=== PATIENT | male | born 1975 | race Caucasian/White ===

== ENCOUNTER 2019-01-24 05:57 | Observation (INO) ==
[2019-01-24] MEDS ORDERED: Ketorolac 15 MG/ML VIAL IVP ONE (06:25)
[2019-01-24] MEDS ORDERED: Tdap (Boostrix) Vaccine 0.5 ML SYRINGE IM ONE (06:25)
[2019-01-24] MEDS ORDERED: Piperacillin/Tazobactam 3.375 GM in Water for inj. (sterile) 20 ML IVP ONE (06:25)
--- NOTE | 2019-01-24 06:34 | Emergency Department Note ---
Disposition Clinical Impression: Fish bite wound Qualifiers: Encounter type: initial encounter Qualified Code(s): W56.51XA - Bitten by other fish, initial encounter Infected puncture wound of finger Qualifiers: Encounter type: initial encounter Qualified Code(s): S61.239A - Puncture wound without foreign body of unspecified finger without damage to nail, initial encounter Disposition: Admitted As Inpatient Condition: Fair Time of Disposition: 08:15 Extremity Problem HPI - General Chief complaint: ED Extremity Problem,Nontraumatic Stated complaint: R Thumb Infected Time Seen by Provider: 01/24/19 06:11 Source: patient, family Mode of arrival: private vehicle Limitations: no limitations Nursing Notes Reviewed: Yes Vital Signs Reviewed: Yes - History of Present Illness HPI Narrative: Patient to ED with for eval of right thumb infection. He reports being "stung" by a catfish while fishing last week. He was seen at [facility] after the tip of the thumb turned red. They gave him Keflex. He returned to [facility] a few days later with an abscess and increased redness/swelling. They then gave him Levaquin and Clindamycin. He stabbed the abscess with a needle and "a lot of pus" drained. Pain, swelling and redness have continued to worsen despite the abx and self I&D. He denies fever, chills, nausea, vomiting, paraesthesias, weakness or decreased ROM. He states that he was not given a Tdap booster during either of his prior ED visits. Pt Subjective Complaint: extremity pain Onset (ago): day(s) Consistency: constant, Worsening Injury Location: right Pain Scale: 8 Quality: stabbing, aching Radiation: proximal Improves with: nothing Worsens with: palpation, use Associated symptoms: Reports: change in appearance, swelling, redness, other (new redness since yesterday). Denies: chest pain, shortness of breath, abdominal pain, back pain, fever Context: trauma ("Stung by catfish in tip of thumb last week") - Related Data Home Medications Medication Instructions Recorded Confirmed Buprenorphine HCl/Naloxone HCl 1 each SL BID 01/24/19 01/24/19 [Suboxone 8 mg-2 mg Sl Film] Allergies Allergy/AdvReac Type Severity Reaction Status Date / Time No Known Allergies Allergy Verified 09/01/16 07:59 All systems ED: reviewed and negative except as stated. Review of Systems: As Per HPI Constitutional: Denies: fever, chills, weakness Cardiovascular: Denies: chest pain, palpitations, syncope Respiratory: Denies: cough, dyspnea Gastrointestinal: Denies: abdominal pain, nausea, vomiting Musculoskeletal: Denies: neck pain, joint swelling, arthralgia Neurological: Denies: weakness, numbness, paresthesias Hematological/Lymphatic: Denies: easy bleeding, easy bruising, lymphadenopathy Past Medical History - Past Medical History Attestation: Yes The following information was validated with the patient. Source: patient Medical history: Reports: no medical history Surgical history: Reports: non-contributory Psychiatric history: Reports: no psych history - Social History Smoking Status: Current every day smoker Smokeless Tobacco Status: No Alcohol use: Reports: none Drug use: Reports: none, other (On Suboxone) Physical Exam - General Limitations: no limitations General appearance: alert, in no apparent distress - Head Head exam: atraumatic, normocephalic, normal inspection - Eye Eye exam: Present: normal appearance. Absent: scleral icterus, conjunctival injection, periorbital swelling - ENT ENT exam: mucous membranes moist - Neck Neck exam: Present: normal inspection, trachea midline. Absent: meningismus - Chest Chest inspection: Present: normal inspection - Respiratory Respiratory exam: Absent: respiratory distress - Cardiovascular Cardiovascular exam: Present: regular rate - Extremities Exam Extremities exam: Present: full ROM, tenderness, normal capillary refill - Expanded Upper Extremity Exam Shoulder exam: Present: normal inspection, full ROM. Absent: tenderness Arm exam: Present: normal inspection. Absent: tenderness Elbow exam: Present: normal inspection, full ROM. Absent: tenderness, swelling Forearm/Wrist exam: Present: normal inspection, full ROM. Absent: tenderness, swelling Hand exam: Present: full ROM, tenderness, swelling, erythema, other (Right thumb distal phalanx is circumferentially edematous, erythematous, tender, and has an abscess on the lateral aspect.) Hand L/R front image: 1 - other (red, warm, swollen, tender) 2 - other (abscess) Neuromotor exam: Normal: wrist extension, thumb opposition, thumb IP flexion, thumb adduction, fingers 2-5 abduction Neurosensory exam: Normal: radial nerve, ulnar nerve, median nerve Hand tendon exam: Normal: flexor digitorum profundus (location), flexor digitorum superficialis (location), extensor tendon (location) Vascular exam: Normal: capillary refill, radial pulse, ulnar pulse - Neurological Exam Neurological exam: Present: alert, oriented X3, CN II-XII intact - Psychiatric Psychiatric exam: Present: normal affect, normal mood - Skin Skin exam: Present: warm, dry, intact Course Course Narrative: Patient was impaled by a catfish spine last week and now has an infection in the right thumb distal phalanx. He describes having an abscess which he drained. He was seen at [facility] twice and was given Kelfex, then Levaquin and clindamycin. He now has another abscess and increasing cellulitis. No fever, hypotension or tachypnea. No subjective fever/chills or malaise. No lymphangitis. Labs, meds, tdap and xray ordered. Will I&D and consult with Ortho. Labs good. Xray does not show osteo or FB. Wound culture added. I&D completed. Patient tolerated this well. Cased discussed with Dr. Haro. He has had face to face time with the patient and agrees with the assessment and plan. Hospitalist tanya. Patient accepted for admisison. - Consultations Consultation #1: Case discussed with Dr. Yin. He agrees with plan to I&D and ryne's packing and wound and having patient do tid hibiclense + water soaks. Time: 08:33 Vital Signs Temperature 98.6 F 01/24/19 06:08 Pulse Rate 68 01/24/19 06:08 Respiratory Rate 18 01/24/19 06:08 Blood Pressure 142/91 01/24/19 06:08 O2 Sat by Pulse Oximetry 98 01/24/19 06:08 Temperature 98.6 F 01/24/19 06:08 Pulse Rate 60 01/24/19 07:06 Respiratory Rate 16 01/24/19 07:06 Blood Pressure 130/76 01/24/19 07:06 O2 Sat by Pulse Oximetry 99 01/24/19 07:06 Oxygen Delivery Oxygen Delivery Room Air Procedures - Abscess I/D Consent obtained: verbal consent Site: hand (thumb) Side (if applicable): right Local Anesthetic: bupivacaine 0.5% Amount of Anesthesia Used (mL): 2 Technique: incised with #11 blade Amount of fluid: 1 Irrigation: Yes Packing used?: iodoform Complications: other (none) Extremity Problem, Nontraumati - Medical Records Medical records reviewed: Yes I reviewed the patient's medical records. - Lab Data Lab results reviewed: Yes I reviewed the patient's lab results. Result diagrams: 01/24/19 06:51 01/24/19 06:51 Lab Results 01/24/19 01/24/19 Range/Units 06:51 06:51 WBC 7.3 (4.3-11.1) K/mcL RBC 4.54 (4.19-5.50) M/mcL Hgb 14.8 (12.9-16.9) g/dL Hct 43.7 (37.5-50.1) % MCV 96.3 (83.0-100.0) fL MCH 32.6 (28.0-33.3) pg MCHC 33.9 (31.6-35.5) g/dL RDW 12.2 (11.5-14.5) % Plt Count 197 (140-400) K/mcL MPV 10.6 (9.4-12.4) fL Immature Gran % 0.3 (0-4) % Seg Neutrophils % 69.0 % Lymphocytes % 19.8 % Monocytes % 8.1 % Eosinophils % 2.5 % Basophils % 0.3 % Neutrophils # 5.0 (1.6-8.9) K/mcL Lymphocytes # 1.4 (0.6-4.6) K/mcL Monocytes # 0.6 (0.0-1.3) K/mcL Eosinophils # 0.2 (0.0-0.6) K/mcL Basophils # 0.0 (0.0-0.2) K/mcL Sodium 140 (136-145) mEq/L Potassium 4.1 (3.5-5.1) mEq/L Chloride 104 (98-107) mEq/L Carbon Dioxide 29 (23-29) mEq/L BUN 17 (6-20) mg/dL Creatinine 1.04 (0.70-1.30) mg/dL Est GFR ( Amer) > 60 (> 60) Est GFR (Non-Af Amer) > 60 (> 60) BUN/Creatinine Ratio 16 (6-26) Glucose 108 H (70-105) mg/dL Calculated Osmolality 292 (280-300) Calcium 9.2 (8.6-10.3) mg/dL - Radiology Data Radiology results reviewed: Yes I reviewed the patient's radiology results. Finger X-Ray 01/24/19 06:25 IMPRESSION: Focal soft tissue swelling of 1st digit without acute osseous abnormality. D/ / Marge Ray MD / Marge Ray MD Interpreting Provider: Marge Ray MD Attestation Statement - Attestation Attestation: Patient was seen in cooperation with physician construction administrative assistant. I reviewed the history, physical, assessment, and plan, and I agree with the findings. I also had personal yaee-ce-plor time with an evaluated this patient. 43-year-old male presents emergency Department with infected right thumb. Patient is right-hand dominant. He says he got a spine from a catfish stuck in there week or so ago. He tried multiple antibiotic therapies but it progressively is getting worse. Ultimately prompting his visit to the ER today. There is some pain there but otherwise patient denies other complaints. Review of systems as above remainder negative. Physical exam vital signs are stable. ENT is unremarkable. Heart rhythm and rate lungs clear. Abdomen soft nontender. Extremities patient has a significant infection to the right thumb. It is fluctuant and turning purple. Neurologically patient's intact. Skin no rashes. Psych normal. ED course. The area was incised and drained by the physician construction administrative assistant. He said that of purulent exudate was extracted. Patient was also started on IV antibiotics. This point patient's clearly failed outpatient management. We will do obvious of the abscess drainage but we will also do IV antibiotics and admit the patient. Hospitalist service was notified at to the need for admission. They agreed to accept patient. I agree with the physician construction administrative assistant assessment and plan.
[2019-01-24 07:15] LABS: Basophils % 0.3 %; Eosinophils # 0.2 K/mcL (0.0-0.6); Eosinophils % 2.5 %; Hematocrit 43.7 % (37.5-50.1); Hemoglobin 14.8 g/dL (12.9-16.9); Immature Granulocytes % 0.3 % (0-4); Lymphocytes # 1.4 K/mcL (0.6-4.6); Lymphocytes % 19.8 %; Mean Corpuscular HGB Conc 33.9 g/dL (31.6-35.5); Mean Corpuscular Hemoglobin 32.6 pg (28.0-33.3); Mean Corpuscular Volume 96.3 fL (83.0-100.0); Mean Platelet Volume 10.6 fL (9.4-12.4); Monocytes # 0.6 K/mcL (0.0-1.3); Monocytes % 8.1 %; Platelet Count 197 K/mcL (140-400); Red Blood Count 4.54 M/mcL (4.19-5.50); Red Cell Distribution Width 12.2 % (11.5-14.5); White Blood Count 7.3 K/mcL (4.3-11.1)
[2019-01-24 07:24] LABS: BUN/Creatinine Ratio 16 (6-26); Blood Urea Nitrogen 17 mg/dL (6-20); Calcium 9.2 mg/dL (8.6-10.3); Carbon Dioxide 29 mEq/L (23-29); Chloride 104 mEq/L (98-107); Glucose 108 mg/dL (70-105); Osmolality,Calculated 292 (280-300); Potassium 4.1 mEq/L (3.5-5.1); Sodium 140 mEq/L (136-145); eGFR For African Americans > 60 (> 60); eGFR For Non-African Americans > 60 (> 60)
--- NOTE | 2019-01-24 09:41 | Internal Med History&Physical ---
Date of Encounter: 01/24/19 Time of Encounter: 09:39 Internal Medicine - H&P: HPI Chief complaint: worsening hand wound. Admitted From: Home Plans for Post Hospital Care: Home History of present illness: Mr. 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 He reported being stuck by catfish spine. Patient had mild inflammation and when to ER at [facility]. He was given Keflex. He took it for 2 days however the wound got worse and associated with pain and redness. The antibiotics were changed again at [facility] to Levaquin and clindamycin which she took for about 4-5 days. His wound continued to worsen over the course on antibiotic. yesterday he lanced it with a needle after burning it in order to drain. Watery and pus material came out according to him. This morning when he woke up he noticed significantly increased swelling and redness associated with tenderness. He decided to come to ER. He was given TD Booster. Lab data was unremarkable. He was started on empiric vancomycin and Zosyn. X-ray did not show any bony abnormality. Patient did not have any signs concerning of deep space infection. Patient had I&D done in the ER cultures were stent. Orthopedics was consulted who recommended packing and Hibiclense 3 times a day. Admission was requested for further management. Past Med Surg Social Fam HX - Past Medical History Medical history: no medical history Additional medical history: On suboxone for opiate dependence. h/o DVT on Lt le g. Psychiatric history: no psych history - Past Surgical History Surgical History: non-contributory - Social History Smoking Status: Current every day smoker Smokeless Tobacco Status: No Alcohol use: none Drug use: none, other (On Suboxone) Internal Medicine - H&P: Meds Buprenorphine HCl/Naloxone HCl [Suboxone 8 mg-2 mg Sl Film] 1 each SL BID 01/24/19 [History] Allergy/AdvReac Type Severity Reaction Status Date / Time No Known Allergies Allergy Verified 09/01/16 07:59 All Systems PM: A 10-system review of systems was performed and is negative for pertinent findings except as documented above in the HPI. - Constitutional Vitals: Temp Pulse Resp BP Pulse Ox 98.6 F 59 18 125/83 98 01/24/19 06:08 01/24/19 08:38 01/24/19 08:38 01/24/19 08:38 01/24/19 08:38 Exam: Constitutional: Vitals as noted. Conversant. No Apparent Distress. Well groomed. No obvious deformities. Eyes : Sclera white, conjunctiva clear, no lid lag, PEARLA. ENT : Grossly normal hearing. Oropharyngeal exam unremarkable. Moist mucus membranes. No JVD, no cervical lymphadenopathy. no thyromegaly or mass. Respiratory : Clear to auscultation bilaterally. No accessory muscle use, rales, rhonchi or wheezes Cardiovascular : RRR, +S1, +S2. no murmur, gallop, rubs. No chest wall tenderness GI/Abdominal : Soft, Non-tender, Non-distended, normal bowel sounds, no peritoneal signs. no orgenomegaly or mass appreciated. no hernia. Musculoskeletal: pulses palpable and symmetrical in UE/LE. no calf tenderness. Rt thumb with bandage. no limitation of flexion and extension. sensation intact. Tenderness limited to thumb. Neurological: AO X3, CN II-XII grossly intact, grossly normal motor and sensory exam. Skin: as above Pych: Good insight and judgement. Intact memory. AOx3. Internal Med - H&P Results - Labs CBC & Chem 7: 01/24/19 06:51 01/24/19 06:51 Labs: Short CBC 01/24/19 Range/Units 06:51 WBC 7.3 (4.3-11.1) K/mcL Hgb 14.8 (12.9-16.9) g/dL Hct 43.7 (37.5-50.1) % Plt Count 197 (140-400) K/mcL Neutrophils # 5.0 (1.6-8.9) K/mcL BMP 01/24/19 06:51 Sodium 140 Potassium 4.1 Chloride 104 Carbon Dioxide 29 BUN 17 Creatinine 1.04 Glucose 108 H Calcium 9.2 - Impressions ITS Impressions Finger X-Ray 01/24/19 06:25 IMPRESSION: Focal soft tissue swelling of 1st digit without acute osseous abnormality. D/ / Marge Ray MD / Marge Ray MD Interpreting Provider: Marge Ray MD - Assessment and Plan (1) Infected puncture wound of finger Current Visit: Yes Status: Acute Assessment and plan: Patient failed outpatient Keflex, Levaquin and clindamycin treatment. We will admit for IV antibiotics. We will continue patient on empiric vancomycin and Zosyn for now. Follow up blood and wound cultures. We will defer any further imaging to orthopedist who has been consulted. Qualifiers: Encounter type: subsequent encounter Qualified Code(s): S61.239D - Puncture wound without foreign body of unspecified finger without damage to nail, subsequent encounter; L08.9 - Local infection of the skin and subcutaneous tissue, unspecified (2) H/O deep venous thrombosis Current Visit: Yes Status: Acute Assessment and plan: Had an unprovoked left leg DVT was treated with 8 months of xarelto. Now off it since 3-4 years. Was stopped by PCP. Is followed by PCP (3) Nicotine dependence with current use Current Visit: Yes Status: Acute Assessment and plan: We will keep patient on 40 mg a could not patch (4) DVT prophylaxis Current Visit: Yes Status: Acute Assessment and plan: Heparin subcutaneous - Time Spent With Patient Total time spent is greater than 50% in coordination of care (as documented) at patient's floor/unit and/or counseling patient:
[2019-01-24] MEDS: Nicotine 14 MG PATCH.TD24 TD SCH (12:39)
[2019-01-24] MEDS: *HR* Heparin 5,000 UNIT/ML VIAL SQ SCH ×2 (15:55→23:50)
[2019-01-24] MEDS: Ketorolac 15 MG/ML VIAL IM PRN ×2 (16:02→23:49)
[2019-01-24] MEDS: Piperacillin/Tazobactam 3.375 GM in 0.9 % Sodium Chloride Mini Bag 100 ML IVPB SCH ×2 (16:03→23:50)
[2019-01-24] MEDS ORDERED: Naloxone 0.4 MG/ML INJ IVP PRN (19:03)
[2019-01-24] MEDS: (Buprenorphine Hcl/Naloxone Hcl [Suboxone 8 Mg-2 Mg SL) SL SCH (22:14)
[2019-01-25] MEDS: *HR* Heparin 5,000 UNIT/ML VIAL SQ SCH ×3 (05:54→20:55)
--- NOTE | 2019-01-25 08:09 | Internal Med Progress Note ---
Hospitalist Progress Note - Encounter Date of Encounter: 01/25/19 Time of Encounter: 09:10 - Subjective Interval History: awake, family at bedside. no fevers or chills, pain controlled. no n/v. Ortho to bedside - Exam Vitals: Temp Pulse Resp BP Pulse Ox 98.1 F 59 13 126/64 97 01/25/19 07:09 01/25/19 07:09 01/25/19 07:09 01/25/19 07:09 01/25/19 07:09 Exam: gen- alert, awake,appears stated age eyes- pupils equal round cv- reg rate and rhythm, normal s1,s2, no murmurs appreciated, warm right hand lungs- ctabl, no wheezing, rhonchi or crackles, norm resp effort on room air skin- right hand dressing in place, clean, dry, intact, wound packed msk- right hand fingers rom intact neuro- AAOx3, finger sensation intact to light touch - Assessment and Plan (1) Infected puncture wound of finger Current Visit: Yes Status: Acute (2) H/O deep venous thrombosis Current Visit: Yes Status: Chronic (3) Nicotine dependence with current use Current Visit: Yes Status: Chronic (4) At risk for abuse of opiates Current Visit: Yes Status: Chronic - Summary of Assessment and Plan Summary of Assessment and Plan: Mr Harp is admitted for infected hand wound refractory to outpt abx treatment Infected Right Hand Thumb s/p I&D in ED and packing Refractory to outpt levaquin and clinda -ortho following, cont TID Hibiclens soaks, packing removed today, fu with hand surg one week from dc -cont IV abx Vanc + Zosyn while awaiting cx results Hx Opiate dependence, now on suboxone- avoid opaites this admit Hx DVT not on AC any longer Gerd- PPI vte ppx [facility] Internal Medicine: Result - Labs CBC & Chem 7: 01/24/19 06:51 01/24/19 06:51 Consult Discharge Plan - Plan Referrals: NONE,PCP [Primary Care Provider] - (1) Infected puncture wound of finger Qualifiers: Encounter type: subsequent encounter Qualified Code(s): S61.239D - Puncture wound without foreign body of unspecified finger without damage to nail, subsequent encounter; L08.9 - Local infection of the skin and subcutaneous tissue, unspecified
[2019-01-25] MEDS: Piperacillin/Tazobactam 3.375 GM in 0.9 % Sodium Chloride Mini Bag 100 ML IVPB SCH ×2 (09:45→16:42)
[2019-01-25] MEDS: Nicotine 14 MG PATCH.TD24 TD SCH (09:46)
[2019-01-25] MEDS: Ketorolac 15 MG/ML VIAL IM PRN ×2 (09:47→19:24)
[2019-01-25] MEDS: (Buprenorphine Hcl/Naloxone Hcl [Suboxone 8 Mg-2 Mg SL) SL SCH ×2 (09:47→20:55)
--- NOTE | 2019-01-25 10:19 | Orthopedic Consult Note ---
Date of Encounter: 01/25/19 Time of Encounter: 10:16 Assessment and Plan (1) Infected puncture wound of finger Current Visit: Yes Status: Acute The diagnosis and treatment recommendations were discussed with the patient. Packing was removed today. He will start with 3 times a day Hibiclens soaks for the thumb. Continue IV antibiotics per the hospitalist. When cultures are finalized he may be discharged per the hospitalist recommendations for anti biotics. Recommend soaks at home with dressing changes in-between. He can then follow up with hand surgery in 1 week. Qualifiers: Encounter type: subsequent encounter Qualified Code(s): S61.239D - Puncture wound without foreign body of unspecified finger without damage to nail, subsequent encounter; L08.9 - Local infection of the skin and subcutaneous tissue, unspecified History of Present Illness HPI: Mr. Harp is a 43 year old male past medical history of DVT, on Suboxone admitted with right thumb infection after being stuck by [employer] spine over a week ago. Was seen at an outside hospital and has been on 2 oral antibiotics without improvement. He lanced the thumb himself 2 days ago and drained purulent material per the patient. He had continued pain and swelling was so seen in the emergency department and had a bedside I&D with drainage of significant material. He was then admitted for IV antibiotics. Past Med Surg Social Fam HX - Past Medical History Medical history: no medical history Additional medical history: On suboxone for opiate dependence. h/o DVT on Lt leg. no medication Psychiatric history: no psych history - Past Surgical History Surgical History: non-contributory - Social History Smoking Status: Current every day smoker Packs per day: 2 Smokeless Tobacco Status: No Alcohol use: none Drug use: none, other Medications and Allergies Acetaminophen [Tylenol] 650 mg PO DAILY PRN 01/24/19 [History] Albuterol Sulfate [Proair Hfa] 2 puff IH Q4H PRN 01/24/19 [History] Buprenorphine HCl/Naloxone HCl [Suboxone 8 mg-2 mg Sl Film] 1 tab SL BID 01/24/19 [History] Clindamycin HCl 300 mg PO QID 01/24/19 [History] Ketorolac [Toradol] 10 mg PO DAILY PRN 01/24/19 [History] Omeprazole [PriLOSEC] 40 mg PO DAILY 01/24/19 [History] levoFLOXacin [Levofloxacin] 750 mg PO DAILY 01/24/19 [History] Allergy/AdvReac Type Severity Reaction Status Date / Time No Known Allergies Allergy Verified 01/24/19 18:01 All Systems Reviewed: The remainder of the systems were reviewed and are negative except as noted in the history of present illness Physical Exam - Constitutional Vitals: Temp Pulse Resp BP Pulse Ox 98.1 F 59 13 126/64 97 01/25/19 07:09 01/25/19 07:09 01/25/19 07:09 01/25/19 07:09 01/25/19 07:09 Exam: Consult Exam: Constitutional -Vitals reviewed -The patient is well developed and well nourished. -Mood is pleasant. -The patient is well groomed. Psychiatric -The patient is fully alert and oriented x 3. Respiratory: -Respiratory effort normal Abdomen: -Soft abdomen -Non tender -Non distended: Left upper extremity: -No deformities. The overlying skin is intact. No obvious signs of acute trauma. -No tenderness to palpation throughout. -No significant pain with passive motion of the shoulder, elbow, wrist, and fingers within the limits of the bed. -Able to make an "OK" sign, cross the index and long fingers, and extend the thumb. -Sensation grossly intact to light touch throughout the median, radial, and ulnar distributions. -Radial pulse is present; Fingers have good capillary refill. Right upper extremity: -Area of previous infection on the radial aspect of the right thumb is been decompressed. There is no proximal extension of the infection. He is able to flex and extend the thumb. No purulent drainage noted from wounds. -Able to make an "OK" sign, cross the index and long fingers, and extend the thumb. -Sensation grossly intact to light touch throughout the median, radial, and ul meena distributions. -Radial pulse is present; Fingers have good capillary refill. Left lower extremity: -No deformities. The overlying skin is intact. No obvious signs of acute trauma. -No tenderness to palpation throughout. -No pain with passive motion of the hip, knee, ankle, and toes within the limits of the bed. -No pain with axial loading of the thigh. -Able to dorsiflex and plantarflex the ankle and toes. -Sensation is grossly intact to light touch throughout the sural, saphenous, superficial peroneal, and deep peroneal distributions. -Toes have good capillary refill. Right lower extremity: -No deformities. The overlying skin is intact. No obvious signs of acute trauma. -No tenderness to palpation throughout. -No pain with passive motion of the hip, knee, ankle, and toes within the limits of the bed. -No pain with axial loading of the thigh. -Able to dorsiflex and plantarflex the ankle and toes. -Sensation is grossly intact to light touch throughout the sural, saphenous, paula perficial peroneal, and deep peroneal distributions. -Toes have good capillary refill. Results - Labs Result Diagrams: 01/24/19 06:51 01/24/19 06:51 Labs: Abnormal lab results Glucose 108 mg/dL (70-105) H 01/24/19 06:51 All other labs normal. - Diagnostic results Wrist/Hand x-ray: report reviewed, image reviewed (No obvious signs of ost eomyelitis of the right thumb.) Consult Discharge Plan - Plan Referrals: NONE,PCP [Primary Care Provider] -
[2019-01-26] MEDS: Piperacillin/Tazobactam 3.375 GM in 0.9 % Sodium Chloride Mini Bag 100 ML IVPB SCH ×3 (00:07→15:02)
[2019-01-26] MEDS: *HR* Heparin 5,000 UNIT/ML VIAL SQ SCH ×2 (05:53→13:48)
[2019-01-26 06:22] LABS: Basophils % 0.3 %; Eosinophils # 0.1 K/mcL (0.0-0.6); Eosinophils % 1.8 %; Hematocrit 43.2 % (37.5-50.1); Hemoglobin 14.9 g/dL (12.9-16.9); Immature Granulocytes % 0.3 % (0-4); Lymphocytes # 2.2 K/mcL (0.6-4.6); Lymphocytes % 31.9 %; Mean Corpuscular HGB Conc 34.5 g/dL (31.6-35.5); Mean Corpuscular Volume 95.8 fL (83.0-100.0); Mean Platelet Volume 10.3 fL (9.4-12.4); Monocytes # 0.5 K/mcL (0.0-1.3); Monocytes % 7.3 %; Platelet Count 218 K/mcL (140-400); Red Blood Count 4.51 M/mcL (4.19-5.50); Segmented Neutrophils % 58.4 %; White Blood Count 6.8 K/mcL (4.3-11.1)
[2019-01-26] MEDS: Ketorolac 15 MG/ML VIAL IM PRN ×2 (06:26→13:52)
[2019-01-26 06:30] LABS: Prothrombin Time 10.8 Seconds (9.4-12.1)
[2019-01-26 06:45] LABS: BUN/Creatinine Ratio 17 (6-26); Blood Urea Nitrogen 18 mg/dL (6-20); eGFR For African Americans > 60 (> 60); eGFR For Non-African Americans > 60 (> 60)
--- NOTE | 2019-01-26 08:30 | Internal Med Progress Note ---
Hospitalist Progress Note - Encounter Date of Encounter: 01/26/19 - Exam Vitals: Temp Pulse Resp BP Pulse Ox 98.0 F 54 16 120/73 96 01/26/19 06:59 01/26/19 06:59 01/26/19 06:59 01/26/19 06:59 01/26/19 06:59 - Time Spent with Patient Total time spent is greater than 50% in coordination of care (as documented) at patient's floor/unit and/or counseling patient: Internal Medicine: Result - Labs CBC & Chem 7: 01/26/19 05:57 01/26/19 05:57 Labs: Short CBC 01/26/19 Range/Units 05:57 WBC 6.8 (4.3-11.1) K/mcL Hgb 14.9 (12.9-16.9) g/dL Hct 43.2 (37.5-50.1) % Plt Count 218 (140-400) K/mcL Neutrophils # 4.0 (1.6-8.9) K/mcL BMP 01/26/19 05:57 BUN 18 Creatinine 1.07 - ABG Interpretation ABG results: PT/INR, D-dimer PT 10.8 Seconds (9.4-12.1) 01/26/19 05:57 Consult Discharge Plan - Plan Referrals: NONE,PCP [Primary Care Provider] -
[2019-01-26] MEDS: Nicotine 14 MG PATCH.TD24 TD SCH (09:07)
[2019-01-26] MEDS: (Buprenorphine Hcl/Naloxone Hcl [Suboxone 8 Mg-2 Mg SL) SL SCH (09:08)
[2019-01-26] MEDS ORDERED: Ketorolac 15 MG/ML VIAL IVP PRN (13:53)
[2019-01-26 14:03] VITALS: BP 132/83
--- NOTE | 2019-01-26 16:49 | Discharge Summary ---
<Kristina Moreno - Last Filed: 01/26/19 17:18> Orders not resulted at time of discharge: Pending orders 01/24/19 06:51 Culture,Blood [BC] Stat 01/25/19 14:00 Culture,Wound [RM] Stat 01/26/19 18:00 Vancomycin,Trough Timed Date of Encounter: 01/26/19 - Discharge Diagnosis (1) Infected puncture wound of finger Priority: Primary Status: Acute Qualifiers: Encounter type: subsequent encounter Qualified Code(s): S61.239D - Puncture wound without foreign body of unspecified finger without damage to nail, subsequent encounter; L08.9 - Local infection of the skin and subcutaneous tissue, unspecified (2) H/O deep venous thrombosis Priority: Secondary Status: Chronic (3) Nicotine dependence with current use Priority: Secondary Status: Chronic (4) At risk for abuse of opiates Priority: Secondary Status: Chronic Hospital course: Mr. Harp is a 43 year old male Discharge discussed with: patient, case management - Time Spent with Patient Total time spent providing and/or coordinating discharge services: Time spent: Greater than 30 minutes (40 min) - Discharge Medications Prescriptions: New Doxycycline 100 mg PO BID #14 capsule Chlorhexidine Gluconate [Hibiclens] 118 ml TP TID 14 Days #118 liquid Continued Buprenorphine HCl/Naloxone HCl [Suboxone 8 mg-2 mg Sl Film] 1 tab SL BID Albuterol Sulfate [Proair Hfa] 2 puff IH Q4H PRN PRN Reason: Shortness Of Breath Ketorolac [Toradol] 10 mg PO DAILY PRN PRN Reason: Pain Omeprazole [PriLOSEC] 40 mg PO DAILY Acetaminophen [Tylenol] 650 mg PO DAILY PRN PRN Reason: Pain Discontinued Clindamycin HCl 300 mg PO QID levoFLOXacin [Levofloxacin] 750 mg PO DAILY Home Medications: Acetaminophen [Tylenol] 650 mg PO DAILY PRN 01/24/19 [History] Albuterol Sulfate [Proair Hfa] 2 puff IH Q4H PRN 01/24/19 [History] Buprenorphine HCl/Naloxone HCl [Suboxone 8 mg-2 mg Sl Film] 1 tab SL BID 01/24/19 [History] Ketorolac [Toradol] 10 mg PO DAILY PRN 01/24/19 [History] Omeprazole [PriLOSEC] 40 mg PO DAILY 01/24/19 [History] Chlorhexidine Gluconate [Hibiclens] 118 ml TP TID 14 Days #118 liquid 01/26/19 [Rx] Doxycycline 100 mg PO BID #14 capsule 01/26/19 [Rx] Allergies/Adverse Reactions: Allergy/AdvReac Type Severity Reaction Status Date / Time No Known Allergies Allergy Verified 01/24/19 18:01 Date of admission: 01/24/19 08:40 Primary care physician: PCP NONE Consults: 01/24/19 08:28 Consult to Orthopedic Surgery [CONS] Stat Consulting Provider: [facility] Reason for Consult: Puncture wound to R thumb from catfish spine with infection. Failed outpatient therapy x 2 Time Notified: 08:29 Call Completed: Yes Discharging clinician: Jasper Streeter - Constitutional Vitals: Temp Pulse Resp BP Pulse Ox 97.8 F 61 17 132/83 96 01/26/19 13:59 01/26/19 13:59 01/26/19 13:59 01/26/19 13:59 01/26/19 13:59 - Patient Status Disposition: Home, Self-Care Condition: Good - Discharge Instructions Follow Up With: Mac Yin MD [Non-Partnered Physician] - (Web request entered. Office will call with date and time of appointment.) Forms: Inpatient Work/School Release Additional Instructions: -take your antibiotic to completion (7 days) -go to Dr. Yin's office -follow up with your primary care provider in around 1-2 weeks - Attending Attestation I examined this patient and my medical decision-making was reviewed with the Resident Physician Dr Streeter. I agree with the documented findings, disposition and treatment plan as described except to the extent set forth below. Mr Harp is admitted for infected hand wound refractory to outpt abx treatment. He is being discharged to home in stable condition with ortho fu and oral abx to complete course. awake, very pleasant and feelign great. no fevers or chills. his hand pain is gone and rom intact. he has no numbness or tingling. he is eager for discharge. discussed negative wound cx and repeat and plan for abx. Suspect inital outpt ab x acutally working given negative cx but that will dc with a different oral abx to complete course. he verbalized good understanding. gen- alert, awake,appears stated age cv- reg rate and rhythm, normal s1,s2, no murmurs appreciated, warm right hand lungs- ctabl, norm resp effort on room air skin- right hand dressing in place, clean, dry, intact, wound packed msk- right hand fingers rom intact neuro- AAOx3 Infected Right Hand Thumb s/p I&D in ED Refractory to outpt levaquin and clinda wound cxs here negative -ortho followed, cont TID Hibiclens soaks,fu with hand surg one week from dc -as repeat cxs wree no growth will dc on doxy to complete course and add MRSA coverage (he has no prior cxs to review and suspect what he was being treated with earlier did clear bacteria and he benefited largely from I&D) time spent on dc 40 min <Jasper Streeter - Last Filed: 01/26/19 21:15> - NOTES TO OUTPATIENT PROVIDER Notes to Outpatient Provider: wound cultures negative. will f/u ortho in 1 week and continue doxy for 7 days. Orders not resulted at time of discharge: Pending orders 01/24/19 06:51 Culture,Blood [BC] Stat 01/25/19 14:00 Culture,Wound [RM] Stat 01/26/19 18:00 Vancomycin,Trough Timed Date of Encounter: 01/26/19 Time of Encounter: 08:14 - Discharge Diagnosis (1) Fish bite wound Priority: Primary Status: Acute Qualifiers: Encounter type: initial encounter Qualified Code(s): W56.51XA - Bitten by other fish, initial encounter (2) H/O deep venous thrombosis Priority: Secondary Status: Chronic (3) Nicotine dependence with current use Priority: Secondary Status: Chronic Hospital course: Mr. Harp is a 43 year old male who came to the ER 01/24/19 for a right thumb infection secondary to catfish arturo impalement. Patient had failed outpatient Keflex, levofloxacin, clindamycin. Finger x-ray showed no osteomyelitis. Wound cultures times 2 on 01/24 and 01/25 negative. Blood cultures 2 01/24 negative. Patient afebrile with no white count. Was treated with 2 days of IV Vanco and Zosyn. Was discharged home with doxycycline 100 mg twice a day by mouth for 10 days. He will also do 3 times a day Hibiclens soaks and follow-up with hand surgery in 1 week. - Time Spent with Patient Total time spent providing and/or coordinating discharge services: Date of admission: 01/24/19 08:40 Primary care physician: PCP NONE Consults: 01/24/19 08:28 Consult to Orthopedic Surgery [CONS] Stat Consulting Provider: [facility] Reason for Consult: Puncture wound to R thumb from catfish spine with infection. Failed outpatient therapy x 2 Time Notified: 08:29 Call Completed: Yes Discharging clinician: Kristina Moreno Anticipated date of discharge: 01/26/19 - Constitutional Vitals: Temp Pulse Resp BP Pulse Ox 97.8 F 61 17 132/83 96 01/26/19 13:59 01/26/19 13:59 01/26/19 13:59 01/26/19 13:59 01/26/19 13:59 Exam: Gen.: Middle-aged male. No acute distress Eyes: Moist and anicteric Cardio: Regular rate and rhythm. No murmur gallop or rub Respiratory: CTA throughout. Nonlabored breathing MSK: Right radial pulse 2+. Sensation intact of distal right thumb. Spooning of nails. Neuro: Eyes able to focus. No tremors noticed Psychiatric. Appropriate behavior. Answered questions coherently. - Patient Status Functional capacity at discharge: independent ambulation Overall status at discharge: patient is progressing back to baseline - Diet and Activity Activity: increase activity as tolerated Diet: advance to your usual diet
[2019-01-26] MEDS ORDERED: Aminoglycoside Consult 1 EACH MC ONE (17:34)
[2019-01-26] MEDS ORDERED: *HR* Buprenorphine HCl 8 MG TAB.SUBL SL SCH (21:00)
== END 2019-01-26 17:35 | disposition home or self-care (01) ==
LOC: EMEROOARM 05:57 → 3ANU 05:57 → SUATTDRO 08:40 → 3ANU 09:29
PROVIDERS: ADMIT Internal Medicine; ATTEND Internal Medicine